=== PATIENT | male | born 1965 | race Caucasian/White ===

== ENCOUNTER 2023-12-22 06:41 | Emergency (ER) | payer OTHER, SELFPAY ==
[2023-12-22] VITALS (10 sets, daily range): BP systolic 100–166; BP diastolic 60–104; PULSE 46–59; RESP 11–21; TEMP 35.6–36.7; O2SAT 97–100
--- NOTE | 2023-12-22 07:11 | ED_ITS ---
HPI - General Adult General Chief complaint: Abdominal Pain <Rob Mancia DO - Last Filed: 12/22/23 07:17> Stated complaint: n/v/d <Rob Mancia DO - Last Filed: 12/22/23 07:17> Time Seen by Provider: 12/22/23 07:00 <Rob Mancia DO - Last Filed: 12/22/23 07:17> History of Present Illness HPI narrative: Ovidio is a previously healthy 58M that presented to the ED with a day of several episodes of non-bloody diarrhea and non-bloody vomit as well as abdominal cramping. He denies sick contacts, poor food exposure, chest pain, and dyspnea. <Rob Mancia DO - Last Filed: 12/22/23 07:17> Related Data Allergies/adverse reactions: Allergies Allergy/AdvReac Type Severity Reaction Status Date / Time No Known Allergies Allergy Verified 12/22/23 06:52 <Rob Mancia DO - Last Filed: 12/22/23 07:17> Review of Systems Review of Systems: All systems reviewed & are unremarkable except as noted in HPI and below <Rob Mancia DO - Last Filed: 12/22/23 07:17> Exam Const: General: cooperative, healthy appearing, comfortable, no acute distress, well developed, alert, awake and Physically active <Rob Mancia DO - Last Filed: 12/22/23 07:17> Orientation/consciousness: oriented to person, oriented to place and oriented to time <Rob Mancia DO - Last Filed: 12/22/23 07:17> HENMT: Head: normal to inspection, normocephalic and atraumatic <Rob Mancia DO - Last Filed: 12/22/23 07:17> Ears: hearing grossly normal bilaterally and external ears normal <Rob Mancia DO - Last Filed: 12/22/23 07:17> Face/Nose/Sinus: Normal external nose present <Rob Mancia DO - Last Filed: 12/22/23 07:17> Other: dry mucous membranes <Rob Mancia DO - Last Filed: 12/22/23 07:17> Eyes: General: appearance normal, both eyes and all related structures <Rob Mancia DO - Last Filed: 12/22/23 07:17> Periorbital: periorbital findings normal <Rob JoanneReid Mancia DO - Last Filed: 12/22/23 07:17> Sclera: sclerae normal <Rob Mancia DO - Last Filed: 12/22/23 07:17> Pupils: Equal, round and reactive pupils present <Rob Mancia DO - Last Filed: 12/22/23 07:17> Neck: Neck: normal visual inspection <Rob Mancia DO - Last Filed: 12/22/23 07:17> Chest: Chest palpation & inspection: normal inspection of the chest <Rob Mancia DO - Last Filed: 12/22/23 07:17> Resp: Effort & Inspection: normal respiratory effort, able to speak in complete sentences and no respiratory distress <Rob Mancia DO - Last Filed: 12/22/23 07:17> Auscultation: clear to auscultation bilaterally <Rob Mancia, DO - Last Filed: 12/22/23 07:17> Cardio: Jugular venous distension: no JVD <Rob Mancia, DO - Last Filed: 12/22/23 07:17> Rate: regular rate <Rob Mancia DO - Last Filed: 12/22/23 07:17> Rhythm: regular rhythm <Rob Mancia DO - Last Filed: 12/22/23 07:17> GI: Inspection: normal to inspection <Rob Mancia DO - Last Filed: 12/22/23 07:17> Auscultation: normal bowel sounds <Rob Mancia DO - Last Filed: 12/22/23 07:17> Other: TTP around the umbilicus and in the epigastric region. <Rob Mancia DO - Last Filed: 12/22/23 07:17> Skin: General skin exam: normal color and no rashes or lesions noted <Rob Mancia DO - Last Filed: 12/22/23 07:17> Neuro: General: oriented to person, oriented to place and oriented to time <Rob Mancia DO - Last Filed: 12/22/23 07:17> Cranial nerves: Yes Equal, round and reactive pupils present <Rob Mancia DO - Last Filed: 12/22/23 07:17> Extrem: General: normal to inspection <Rob Mancia DO - Last Filed: 12/22/23 07:17> Course Course Emergency Course: Ordered fluids, labs and zofran. Care transferred to Dr. Salinas at 0717 <Rob Mancia DO - Last Filed: 12/22/23 07:17> Vital Signs Vital signs: Vital Signs Temperature 96.1 F L 12/22/23 06:42 Pulse Rate 52 L 12/22/23 06:42 Respiratory Rate 12 12/22/23 06:42 Blood Pressure 100/86 12/22/23 06:42 Pulse Oximetry 97 12/22/23 06:42 Oxygen Delivery Room Air 12/22/23 06:42 Temperature 98.0 F 12/22/23 08:47 Pulse Rate 50 L 12/22/23 08:47 Respiratory Rate 16 12/22/23 08:47 Blood Pressure 154/64 H 12/22/23 08:31 Pulse Oximetry 100 12/22/23 08:47 Oxygen Delivery Room Air 12/22/23 08:47 <Rob Mancia DO - Last Filed: 12/22/23 07:17> Vital Signs Temperature 96.1 F L 12/22/23 06:42 Pulse Rate 52 L 12/22/23 06:42 Respiratory Rate 12 12/22/23 06:42 Blood Pressure 100/86 12/22/23 06:42 Pulse Oximetry 97 12/22/23 06:42 Oxygen Delivery Room Air 12/22/23 06:42 Temperature 98.0 F 12/22/23 08:47 Pulse Rate 50 L 12/22/23 08:47 Respiratory Rate 16 12/22/23 08:47 Blood Pressure 154/64 H 12/22/23 08:31 Pulse Oximetry 100 12/22/23 08:47 Oxygen Delivery Room Air 12/22/23 08:47 <Paola Salinas III, DO - Last Filed: 12/22/23 09:29> Medical Decision Making MDM Narrative Medical decision making narrative: Pt seems like gastroenteritis by history and exam. assumed care from Dr Mancia at 0700 awaiting treatment and labs. Total bili slighltly elevated but no abd pain on my reeval, blood sugar 183, no known hx of DM. Pt felt better after frluids and zofran. encouraged to follow up with PCP and get recheck labs when feeling better. Home on zofran. <Paola Salinas III, DO - Last Filed: 12/22/23 09:29> Vital Signs Vital Signs: Vital Signs Temperature 96.1 F L 12/22/23 06:42 Pulse Rate 52 L 12/22/23 06:42 Respiratory Rate 12 12/22/23 06:42 Blood Pressure 100/86 12/22/23 06:42 Pulse Oximetry 97 12/22/23 06:42 Oxygen Delivery Room Air 12/22/23 06:42 Temperature 98.0 F 12/22/23 08:47 Pulse Rate 50 L 12/22/23 08:47 Respiratory Rate 16 12/22/23 08:47 Blood Pressure 154/64 H 12/22/23 08:31 Pulse Oximetry 100 12/22/23 08:47 Oxygen Delivery Room Air 12/22/23 08:47 <Rob Mancia, DO - Last Filed: 12/22/23 07:17> Vital Signs Temperature 96.1 F L 12/22/23 06:42 Pulse Rate 52 L 12/22/23 06:42 Respiratory Rate 12 12/22/23 06:42 Blood Pressure 100/86 12/22/23 06:42 Pulse Oximetry 97 12/22/23 06:42 Oxygen Delivery Room Air 12/22/23 06:42 Temperature 98.0 F 12/22/23 08:47 Pulse Rate 50 L 12/22/23 08:47 Respiratory Rate 16 12/22/23 08:47 Blood Pressure 154/64 H 12/22/23 08:31 Pulse Oximetry 100 12/22/23 08:47 Oxygen Delivery Room Air 12/22/23 08:47 <Paola Salinas III, DO - Last Filed: 12/22/23 09:29> Lab Data Result diagrams: 12/22/23 06:46 12/22/23 06:46 <Rob Mancia, DO - Last Filed: 12/22/23 07:17> Labs: Lab Results 12/22/23 Range/Units 06:46 WBC 11.2 H (4.8-10.8) K/mm3 RBC 4.70 (4.70-6.10) M/mm3 Hgb 15.7 (14.0-18.0) g/dL Hct 46.7 (40.0-54.0) % MCV 99.4 (78.0-102.0) fL MCH 33.4 H (27.0-31.0) pg MCHC 33.6 (32-36) g/dL RDW 11.9 (11.6-14.4) % Plt Count 250 (150-420) K/mm3 MPV 11.8 H (8.7-11.0) fl Immature Gran % (Auto) 0.2 H (0.0-0.0) % Neut % (Auto) 90.8 H (50.0-70.0) % Lymph % (Auto) 2.2 L (18.0-42.0) % [place] % (Auto) 6.3 (2.0-11.0) % Eos % (Auto) 0.1 L (1.0-6.0) % Baso % (Auto) 0.4 (0.0-1.0) % Lymph # (Auto) 0.25 L (1.10-4.50) K/mm3 [place] # (Auto) 0.71 (0.10-0.90) K/mm3 Eos # (Auto) 0.01 L (0.02-0.50) K/mm3 Baso # (Auto) 0.04 (0.00-0.10) K/mm3 Abs Immat Gran (auto) 0.02 H (0.00-0.00) K/mm3 Absolute Neuts (auto) 10.21 H (1.70-7.20) K/mm3 Absolute Nucleated RBC 0.00 (0.00-0.00) K/mm3 Nucleated RBC % 0.0 (0-0.0) % Sodium 145 (136-145) mmol/L Potassium 4.2 (3.5-5.1) mmol/L Chloride 104 (98-108) mmol/L Carbon Dioxide 28 (21-32) mmol/L Anion Gap 13 H (4-12) mmol/L BUN 19 H (7-18) mg/dL Creatinine 1.03 (0.70-1.30) mg/dL Estim Creat Clear Calc 54 ml/min Estimated GFR > 60 (59 - ) Glucose 183 H (70-99) mg/dL Calculated Osmolality 307 H (285-295) mOsm/kg Calcium 10.1 (8.5-10.1) mg/dL Total Bilirubin 2.2 H (0.00-1.00) mg/dL AST 14 L (15-37) U/L ALT 29 (16-63) U/L Alkaline Phosphatase 74 (46-116) U/L Total Protein 8.3 H (6.4-8.2) g/dL Albumin 4.5 (3.4-5.0) g/dL Lipase 13 L (16-77) U/L <Rob Mancia, - Last Filed: 12/22/23 07:17> Lab Results 12/22/23 Range/Units 06:46 WBC 11.2 H (4.8-10.8) K/mm3 RBC 4.70 (4.70-6.10) M/mm3 Hgb 15.7 (14.0-18.0) g/dL Hct 46.7 (40.0-54.0) % MCV 99.4 (78.0-102.0) fL MCH 33.4 H (27.0-31.0) pg MCHC 33.6 (32-36) g/dL RDW 11.9 (11.6-14.4) % Plt Count 250 (150-420) K/mm3 MPV 11.8 H (8.7-11.0) fl Immature Gran % (Auto) 0.2 H (0.0-0.0) % Neut % (Auto) 90.8 H (50.0-70.0) % Lymph % (Auto) 2.2 L (18.0-42.0) % [place] % (Auto) 6.3 (2.0-11.0) % Eos % (Auto) 0.1 L (1.0-6.0) % Baso % (Auto) 0.4 (0.0-1.0) % Lymph # (Auto) 0.25 L (1.10-4.50) K/mm3 [place] # (Auto) 0.71 (0.10-0.90) K/mm3 Eos # (Auto) 0.01 L (0.02-0.50) K/mm3 Baso # (Auto) 0.04 (0.00-0.10) K/mm3 Abs Immat Gran (auto) 0.02 H (0.00-0.00) K/mm3 Absolute Neuts (auto) 10.21 H (1.70-7.20) K/mm3 Absolute Nucleated RBC 0.00 (0.00-0.00) K/mm3 Nucleated RBC % 0.0 (0-0.0) % Sodium 145 (136-145) mmol/L Potassium 4.2 (3.5-5.1) mmol/L Chloride 104 (98-108) mmol/L Carbon Dioxide 28 (21-32) mmol/L Anion Gap 13 H (4-12) mmol/L BUN 19 H (7-18) mg/dL Creatinine 1.03 (0.70-1.30) mg/dL Estim Creat Clear Calc 54 ml/min Estimated GFR > 60 (59 - ) Glucose 183 H (70-99) mg/dL Calculated Osmolality 307 H (285-295) mOsm/kg Calcium 10.1 (8.5-10.1) mg/dL Total Bilirubin 2.2 H (0.00-1.00) mg/dL AST 14 L (15-37) U/L ALT 29 (16-63) U/L Alkaline Phosphatase 74 (46-116) U/L Total Protein 8.3 H (6.4-8.2) g/dL Albumin 4.5 (3.4-5.0) g/dL Lipase 13 L (16-77) U/L <Paola Salinas III, DO - Last Filed: 12/22/23 09:29> Discharge Plan Discharge Clinical Impression: Gastroenteritis <Rob Mancia DO - Last Filed: 12/22/23 07:17> Patient Disposition: Home, Self-Care <Rob Mancia DO - Last Filed: 12/22/23 07:17> Condition: Improved <DO Jayjay Ventura Last Filed: 12/22/23 07:17> Instructions: Antibiotic Form, Gastroenteritis (ED) <DO Jayjay Ventura Last Filed: 12/22/23 07:17> Additional Instructions: follow up to get repeat blood sugar and bilirubin drawn when not sick <Rob Mancia DO - Last Filed: 12/22/23 07:17> Prescriptions: New ondansetron 4 mg tablet,disintegrating 4 mg PO Q8H PRN (Reason: nausea and vomiting) Qty: 14 0RF <Rob Mancia DO - Last Filed: 12/22/23 07:17> Follow-up/Referrals: Rob Mancia DO [Physician] - UNKNOWN,DOCTOR [Primary Care Provider] - <Rob Mancia DO - Last Filed: 12/22/23 07:17>
[2023-12-22 07:15] LABS: Basophils Absolute Auto 0.04 K/mm3 (0.00-0.10); Basophils Percent Auto 0.4 % (0.0-1.0); Eosinophils Absolute Auto 0.01 K/mm3 (0.02-0.50); Eosinophils Percent Auto 0.1 % (1.0-6.0); Hematocrit 46.7 % (40.0-54.0); Hemoglobin 15.7 g/dL (14.0-18.0); Immature Granulocyte Absolute 0.02 K/mm3 (0.00-0.00); Immature Granulocyte Percent A 0.2 % (0.0-0.0); Lymphocytes Absolute Auto 0.25 K/mm3 (1.10-4.50); Lymphocytes Percent Auto 2.2 % (18.0-42.0); Mean Corpuscular HGB Conc 33.6 g/dL (32-36); Mean Corpuscular Hemoglobin 33.4 pg (27.0-31.0); Mean Corpuscular Volume 99.4 fL (78.0-102.0); Mean Platelet Volume 11.8 fl (8.7-11.0); Monocytes Absolute Auto 0.71 K/mm3 (0.10-0.90); Monocytes Percent Auto 6.3 % (2.0-11.0); Neutrophils Absolute Auto 10.21 K/mm3 (1.70-7.20); Neutrophils Percent Auto 90.8 % (50.0-70.0); Platelet Count Result 250 K/mm3 (150-420); Red Cell Distribution Width 11.9 % (11.6-14.4); White Blood Count 11.2 K/mm3 (4.8-10.8)
[2023-12-22] MEDS: SODIUM CHLORIDE 0.9% IV 1,000 ML 999 ML IV CONT (07:19)
[2023-12-22] MEDS: ONDANSETRON INJ 4 MG/2 ML VIAL IV PUSH (07:20)
[2023-12-22 07:22] LABS: Alanine Aminotransferase 29 U/L (16-63); Albumin Level 4.5 g/dL (3.4-5.0); Alkaline Phosphatase 74 U/L (46-116); Anion Gap 13 mmol/L (4-12); Aspartate Amino Transferase 14 U/L (15-37); Bilirubin,Total 2.2 mg/dL (0.00-1.00); Blood Urea Nitrogen 19 mg/dL (7-18); Calcium 10.1 mg/dL (8.5-10.1); Carbon Dioxide 28 mmol/L (21-32); Chloride 104 mmol/L (98-108); Estimated CRCL calculation 54 ml/min; Estimated Glomerular Filt Rate > 60; Glucose 183 mg/dL (70-99); Lipase 13 U/L (16-77); Osmolality Calculated 307 mOsm/kg (285-295); Potassium 4.2 mmol/L (3.5-5.1); Sodium 145 mmol/L (136-145); Total Protein 8.3 g/dL (6.4-8.2)
== END 2023-12-22 08:47 | disposition home or self-care (01) ==
PROVIDERS: Family Medicine; Emergency Provider Emergency Medicine
DX: K52.9 Noninfective gastroenteritis and colitis, unspecified (principal)
CPT/HCPCS: 36415; 80053; 83690; 85025; 96361; 96374; 99284; J2405; J7030